=== PATIENT | female | born 1950 | race Caucasian/White ===

== ENCOUNTER → 2019-10-16 11:25 | Outpatient (CLI) | payer BC, SELFPAY ==
--- NOTE | ~2019-10-16 | US_ITS ---
EXAMINATION: US thyroid EXAM DATE: 10/16/2019 11:43 INDICATION: Goiter. TECHNIQUE: Multiple grayscale and Doppler images of the thyroid were obtained (by a technologist who performed the scan) and subsequently reviewed. Individual nodules and recommendations may be reporte d in accordance with TI-RADS system as designated by the 2017 ACR White Paper TI-RADS committee. The re is no prior study for comparison. FINDINGS: The right thyroid lobe measures 3.8 x 1.6 x 1.5 cm, the left measuring 3.9 x 1.2 x 1.3 cm. Relatively homogeneous thyroid echogenicity without focal nodules identified. IMPRESSION: 1. Unremarkable thyroid ultrasound exam. Reviewed, dictated and finalized at location A.
== END ==
PROVIDERS: PCP Family Medicine; Visit Provider Family Medicine
DX: E01.0 Iodine-deficiency related diffuse (endemic) goiter (principal)
CPT/HCPCS: 76536

== ENCOUNTER 2022-01-12 16:07 | Emergency (ER) | payer BC, SELFPAY ==
--- NOTE | 2022-01-12 16:08 | ED.GENADULT ---
HPI - General Adult General Chief complaint: Dizziness Stated complaint: dizzy Time Seen by Provider: 01/12/22 16:18 Source: patient Mode of arrival: ambulatory Limitations: no limitations History of Present Illness HPI narrative: 71-year-old female presents concern for 2 day history of dizziness when she bends over or when she stands up from sitting. She reports over the last week she has had sinus congestion and pain. She denies any ear pain, decreased hearing, she reports a feeling of ear wax in her ears. She denies headache, vision changes, trouble speaking, trouble swallowing, weakness to any extremity. She reports the 1st episode of dizziness she experienced some nausea but has not had nausea since then. She denies chest pain, shortness of breath. MD complaint: Dizzy Related Data Home Medications Medication Instructions Recorded Confirmed metoprolol tartrate 25 mg tablet 25 mg PO DAILY 10/05/19 12/16/21 warfarin 4 mg tablet 8 mg PO .COMPLEX 08/15/21 12/16/21 warfarin 6 mg tablet 6 mg PO 2XW 08/15/21 12/16/21 Allergies Allergy/AdvReac Type Severity Reaction Status Date / Time Contrast Media Allergy Unknown Unknown Uncoded 12/16/21 13:43 Review of Systems Review of Systems: CONSTITUTIONAL: Denies malaise, chills, sweats, or fever. EYES: Denies visual changes, redness, or discharge. ENT: Denies rhinorrhea, otalgia or sore throat. Reports sinus congestion, ear fullness CARDIOVASCULAR: Denies chest pain, palpitations, or edema. RESPIRATORY: Denies cough or dyspnea. GASTROINTESTINAL: Denies abdominal pain, vomiting, diarrhea. Reports 1 episode of nausea MUSCULOSKELETAL: Denies myalgia. NEUROLOGIC: Denies numbness, weakness, or headache. Reports dizziness PSYCHIATRIC: Denies anxiety or depression. All systems reviewed & are unremarkable except as noted in HPI and below [facility] Past Medical History Medical History CAROLE positive Arthralgia Arthralgia of hands, bilateral Encounter for medication management Hypertension Left atrial thrombus Mixed hyperlipidemia SCOOTER (obstructive sleep apnea) Polymyalgia rheumatica (~2020) Family History Family History Mother Patient's mother is in good health Sibling Patient's sister is in good health Patient's brother is in good health Other Family history of arthritis Social History Social History Smoking status: Never smoker Second hand tobacco smoke exposure: No Alcohol intake: current Drinks per week: 2 Substance use: never Substance use type: does not use Gender identity (if verbalized by the patient): Female Spiritual care concerns: No Agree to blood products: Yes Comments At time of signature, agree with nursing past medical, surgical, social and family history. There is no relevant family history pertinent to the presenting complaint Exam Narrative: GENERAL: Well-appearing, well-nourished, and in no acute distress. HEAD: Normocephalic, atraumatic. EYES: PERRLA, sclera clear, and EOMI. No nystagmus. ENT: Nares clear, turbinates pink, no rhinorrhea or epistaxis. Mucous membranes moist. TM pearly romero with sharp light reflex bilaterally; no tragal tenderness. Oropharynx without erythema or lesions. Tonsils not enlarged and without exudate. NECK: Supple. No lymphadenopathy. No jugular venous distension, thyromegaly, or carotid bruits. Carotids were easily palpable bilaterally. CHEST: No respiratory distress. Clear to auscultation. No bony deformities, no asymmetry. Speaks in full sentences. HEART: Regular rate and rhythm. No murmur heard. Normal peripheral pulses. ABDOMEN: Soft, nontender, nondistended, normal active bowel sounds, no palpable masses. EXTREMITIES: Normal range of motion. No edema. Normal strength and sensation. SKIN: Warm, dry, no visible rash. NEURO: Daysi
[2022-01-12 16:16] VITALS: BP 161/75; PULSE 88; RESP 16; TEMP 37; O2SAT 98
== END 2022-01-12 16:36 | disposition home or self-care (01) ==
PROVIDERS: Emergency Provider Nurse Practitioner; PCP Family Medicine
DX: H73.893 Other specified disorders of tympanic membrane, bilateral (principal); I10 Essential (primary) hypertension; E78.2 Mixed hyperlipidemia; Z79.01 Long term (current) use of anticoagulants
CPT/HCPCS: 99213; G0463

== ENCOUNTER 2022-05-26 09:52 | Outpatient (CLI) | payer BC, SELFPAY | END 2022-05-26 09:53 | disposition home or self-care (01) | PROVIDERS: PCP Family Medicine; Visit Provider Otolaryngology | DX: H93.12 Tinnitus, left ear (principal); H90.A21 Sensorineural hearing loss, unilateral, right ear, with restricted hearing on the contralateral side; H90.3 Sensorineural hearing loss, bilateral | CPT/HCPCS: 92557; 92567 ==

== ENCOUNTER 2023-08-03 10:25 | Emergency (ER) | payer BC, SELFPAY ==
[2023-08-03 10:33] VITALS: BP 139/78; PULSE 58; RESP 16; TEMP 36.4; O2SAT 100
--- NOTE | 2023-08-03 11:00 | ED.URI ---
HPI - URI/Sore Throat General Chief Complaint: Upper Respiratory Infection Stated Complaint: SINUS HEADACHE/DRAINAGE/SORE THROAT/COUGH Time Seen by Provider: 08/03/23 10:46 Source: patient, RN notes reviewed and old records reviewed Mode of arrival: ambulatory Limitations: no limitations History of Present Illness HPI Narrative: 72 year old female who presents to [facility] care with complaints of sinus headache, sinus congestion, sore throat and cough for 5-6 days. Patient reports that she did take home COVID test which was negative. Patient denies any known fevers, chills or body aches. Patient has been taking Tussin DM and Flonase and Tylenol for her symptoms. Patient denies any dyspnea or any chest pain. Patient is on hydroxychloroquine for CAROLE positive arthritis findings and is on daily Coumadin for previous blood clots in heart. MD elicited complaint: cough, sore throat, rhinorrhea, nasal congestion and other (headache) Pertinent past history: immunosuppression and other (on Coumadin) Onset (ago): day(s) (5-6 days) Pain scale (0-10): 3 Description of mucous: clear Able to tolerate fluids by mouth: Yes Treatments prior to arrival: acetaminophen and other (Tussin DM, Flonase) Related Data Home Medications Medication Instructions Recorded Confirmed metoprolol tartrate 25 mg tablet 25 mg PO DAILY 10/05/19 08/03/23 warfarin 4 mg tablet 8 mg PO .COMPLEX 08/15/21 08/03/23 warfarin 6 mg tablet 6 mg PO 2XW 08/15/21 08/03/23 cetirizine 10 mg capsule (Zyrtec) 10 mg PO DAILY 02/18/22 08/03/23 Allergies Allergy/AdvReac Type Severity Reaction Status Date / Time Contrast Media Allergy Unknown Unknown Uncoded 08/03/23 10:48 Review of Systems Review of Systems: CONSTITUTIONAL: Denies malaise, chills, sweats, or fever. EYES: Denies visual changes, redness, or discharge. ENT: Reports rhinorrhea, congestion, sinus pain, no otalgia and positive for sore throat. CARDIOVASCULAR: Denies chest pain, palpitations, or edema. RESPIRATORY: Reports cough.? Denies dyspnea. GASTROINTESTINAL: Denies abdominal pain, nausea, vomiting, diarrhea SKIN: Denies rash or itching. MUSCULOSKELETAL: Denies myalgia. NEUROLOGICReports frontal headache. All systems reviewed & are unremarkable except as noted in HPI and below [facility] Past Medical History Medical History CAROLE positive Arthralgia Arthralgia of hands, bilateral Encounter for medication management Hypertension Left atrial thrombus Mixed hyperlipidemia SCOOTER (obstructive sleep apnea) Polymyalgia rheumatica (~2020) Surgical History Surgical History H/O heart surgery H/O knee surgery History of knee replacement Family History Family History Mother Patient's mother is in good health Sibling Patient's sister is in good health Patient's brother is in good health Other Family history of arthritis Social History Social History Smoking status: Never smoker Second hand tobacco smoke exposure: No Alcohol intake: current Drinks per week: 2 Substance use: never Substance use type: does not use Lack of Transportation: No Lack of Food: Never True Current Housing: I Have Housing Concerned About Future Housing: No Difficulty Paying Gas/Electric Bills: No Difficulty Paying for Meds: No Currently Unemployed: No Education: Bachelor's Degree Difficulty w/ Childcare or Family Care: No Living arrangements: alone Occupation/Education: retired Gender identity (if verbalized by the patient): Female Spiritual care concerns: No Agree to blood products: Yes Comments At time of signature, agree with nursing past medical, surgical, social and family history. There is no relevant family history pertinent to the pr
== END 2023-08-03 11:14 | disposition home or self-care (01) ==
PROVIDERS: Emergency Provider Registered Nurse; PCP Family Medicine
DX: J01.90 Acute sinusitis, unspecified (principal); R05.9 Cough, unspecified; I10 Essential (primary) hypertension; E78.2 Mixed hyperlipidemia; M35.3 Polymyalgia rheumatica; R76.0 Raised antibody titer; Z79.01 Long term (current) use of anticoagulants
CPT/HCPCS: 99213; G0463